=== PATIENT | male | born 1990 ===

== ENCOUNTER 2018-05-21 22:04 | Emergency (ER) | payer SELFPAY ==
[2018-05-21 22:21] VITALS: BP 151/93; PULSE 118; RESP 22; TEMP 99; O2SAT 95
--- NOTE | 2018-05-21 22:31 | C.PDOC ---
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 today Time Seen by Provider: 05/21/18 22:27 Chief Complaint (Nursing): Medical Clearance History Per: Patient History/Exam Limitations: no limitations Onset/Duration Of Symptoms: Persistent Current Symptoms Are (Timing): Still Present Severity: Mild Pain Scale Rating Of: 0 Recent travel outside of the [place]: No Additional History Per: Patient Past Medical History Reviewed: Historical Data, Nursing Documentation, Vital Signs Vital Signs: Last Vital Signs Temp 99 F 05/21/18 22:13 Pulse 118 H 05/21/18 22:13 Resp 22 05/21/18 22:13 BP 151/93 H 05/21/18 22:13 Pulse Ox 95 05/21/18 22:13 Surgical History: No Surg Hx Family History: States: No Known Family Hx - Social History Hx Alcohol Use: Yes Hx Substance Use: Yes - Immunization History Hx Tetanus Toxoid Vaccination: No Hx Influenza Vaccination: No Hx Pneumococcal Vaccination: No Review Of Systems Except As Marked, All Systems Reviewed And Found Negative. Physical Exam - Physical Exam Appears: Well, Non-toxic, No Acute Distress Skin: Normal Color Head: Atraumatic, Normacephalic Eye(s): bilateral: Other (+ pinpoint) ED Course And Treatment O2 Sat by Pulse Oximetry: 95 Reevaluation Time: 22:39 Reassessment Condition: Unchanged (conversant, awake, alert, stable gait) Medical Decision Making Medical Decision Making: heroine abuse no other physical issues aside from pinpoint pupils awake and stable for d/c and safe ride home Disposition Doctor Will See Patient In The: Office Counseled Patient/Family Regarding: Studies Performed, Diagnosis - Disposition Referrals: [facility] [Outside] [facility] [Outside] [facility] [Outside] [place] [facility] [Outside] Disposition: HOME/ ROUTINE Disposition Time: 22:31 Condition: GOOD Additional Instructions: AVOID narcotics abuse seek outpatient treatment plans or inpatient detox call for availability Carry Narcan [place] on your person and inform people you are with that it may be used to spray up your nose in case of narcotics overdose Prescriptions: Naloxone HCl [Narcan] 4 mg NS ONCE PRN #1 spray PRN Reason: YES Instructions: Opioid Use Disorder Forms: GIVTED (Yoruba) - Clinical Impression Clinical Impression: Medical assessment
== END 2018-05-21 22:50 | disposition home or self-care (01) ==
LOC: C.ER 22:04
DX: Z00.00 Encounter for general adult medical examination without abnormal findings (principal)